=== PATIENT | male | born 1990 ===

== ENCOUNTER 2019-12-31 21:27 | Emergency (ER) | payer OTHER ==
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
[2019-12-31 21:54] VITALS: BP 151/80; PULSE 116
[2019-12-31] MEDS ORDERED: Iopamidol 612 MG/ML 100 ML Bottle IVPUSH ONE (22:01)
[2019-12-31] MEDS: Sodium Chloride 0.9% 10 ML Syringe FLUSH PRN ×2 (22:12→22:42)
[2019-12-31] MEDS ORDERED: HYDROmorphone 1 MG/ML Syringe IVPUSH ONE (23:46)
--- NOTE | 2020-01-01 06:31 | CT ---
CT chest Technique: Multiple axial sections were obtained from above the lung apices inferiorly through the lung bases. Intravenous contrast was utilized. Comparison: No prior chest CT, chest x-ray of s is 18 is available. Findings: Aorta appears within normal limits. Mediastinum shows no hematoma. No axillary adenopathy is seen. No pericardial thickening is seen. Lungs are clear with no acute pulmonary change. No pleural effusions are noted. Minimal nodularity is seen within the right middle lobe believed to be chronic. Slight atelectasis seen within the left base. Bone window settings were reviewed. No acute osseous finding is appreciated. Impression: 1. Minimal nodularity with the right middle lobe. I believe this is incidental given the patient's age. 2. Nothing acute is appreciated on CT study of the chest. Diagnostic code #2 This report was dictated in MDT I agree with preliminary report from [facility], finalized on 12/25, 12:09 [address] [place] Time CT abdomen Technique: Multiple axial sections were obtained from above the dome of the diaphragm inferiorly to the mid pelvis. Intravenous contrast was utilized. No oral contrast has been given. Findings liver contains no focal abnormality. Spleen is slightly prominent in size with length 15.1 cm.. Adrenal glands show no nodule. Pancreas shows no abnormality. Gallbladder contains no calcified gallstones. Kidneys show symmetric contrast enhancement with no hydronephrosis. Small low density lesion most likely representing small cyst noted within the left kidney measuring 6 mm. Aorta shows no aneurysm. No retroperitoneal adenopathy is seen. Appendix is seen which is normal in size. Visualized upper pelvis shows no abnormality. Bone window settings were reviewed which show nothing acute. Impression: 1. Nothing acute is seen on CT study of the abdomen with imaging obtained to the mid pelvis. 2. Other nonacute findings as noted above. Diagnostic code #2 This report was dictated in MDT I agree with preliminary report from [facility], finalized on 01/01/20, 12:09 AM [place] Daylight Time
== END 2020-01-01 00:07 | disposition home or self-care (01) ==
LOC: JD.ED 21:27
DX: S22.31XA Fracture of one rib, right side, initial encounter for closed fracture (principal); S20.221A Contusion of right back wall of thorax, initial encounter; V49.9XXA Car occupant (driver) (passenger) injured in unspecified traffic accident, initial encounter
CPT/HCPCS: 71260; 74177; 96374; 99284; J1170; Q9967; 99283